=== PATIENT | female | born 1935 | race Caucasian/White ===

== ENCOUNTER → 2017-04-20 | Outpatient (CLI) | payer MEDICARE, OTHER | END | disposition home or self-care (01) | LOC: RAD.S 04-14 16:54 | DX: M48.06 Spinal stenosis, lumbar region (principal); M54.41 Lumbago with sciatica, right side; M79.661 Pain in right lower leg; M79.662 Pain in left lower leg; G89.29 Other chronic pain; R29.898 Other symptoms and signs involving the musculoskeletal system; G57.22 Lesion of femoral nerve, left lower limb; M46.06 Spinal enthesopathy, lumbar region; M99.83 Other biomechanical lesions of lumbar region ==